=== PATIENT | female | born 1980 | race Hispanic/Latino ===

== ENCOUNTER 2024-07-07 21:37 | Inpatient (IN) | payer SELFPAY ==
[~2024-07-07] VITALS: Ht 162.6 cm; Wt 61.2 kg
[2024-07-07 21:44] VITALS: PULSE 107; RESP 16; TEMP 98.5
[2024-07-07] MEDS: SODIUM CHLORIDE 0.9% 1000ML 1,000 ML IV ONE ×2 (22:36→23:13)
[2024-07-07] MEDS: Morphine 2mg Syringe 2 MG/ML SYR IV ONE (23:12)
[2024-07-07] MEDS: ONDANSETRON HCL INJ 2MG/ML 2ML 2 MG/ML VIAL IV STA (23:12)
[2024-07-08] VITALS (8 sets, daily range): BP systolic 77–124; BP diastolic 56–68; PULSE 75–108; RESP 16–19; TEMP 98.1–99.1; O2SAT 97–100
[2024-07-08] MEDS ORDERED: Morphine 2mg Syringe 2 MG/ML SYR IV PRN (00:45)
[2024-07-08] MEDS ORDERED: DEXTROSE 50% SYRINGE 50 ML IV PRN ×3 (00:45→08:45)
[2024-07-08] MEDS ORDERED: ONDANSETRON HCL INJ 2MG/ML 2ML 2 MG/ML VIAL IV PRN ×2 (00:45→08:45)
[2024-07-08] MEDS: INSULIN REGULAR, HUMAN 100 UNIT/1 ML SQ ONE (04:55)
[2024-07-08] MEDS: SODIUM CHLORIDE 0.9% 1000ML 1,000 ML IV SCH (04:57)
[2024-07-08] MEDS ORDERED: IOPAMIDOL 370 MG/ML 100 ML INFUS..BTL INJ ONE (06:05)
[2024-07-08] MEDS: INSULIN REGULAR, HUMAN 100 UNIT/1 ML SQ SCH (07:43)
[2024-07-08] MEDS ORDERED: HYDRALAZINE HCL 20 MG/ML VIAL IV PRN (08:45)
[2024-07-08] MEDS ORDERED: LIDOCAINE 4% PATCH TP PRN (08:45)
[2024-07-08] MEDS ORDERED: DIPHENHYDRAMINE HCL 25 MG CAP PO PRN (08:45)
[2024-07-08] MEDS ORDERED: SIMETHICONE 80 MG CHEW PO PRN (08:45)
[2024-07-08] MEDS ORDERED: DOCUSATE SODIUM 100 MG CAP PO PRN (08:45)
[2024-07-08] MEDS ORDERED: POTASSIUM CHLORIDE 20 MEQ TAB CR PO PRN (08:45)
[2024-07-08] MEDS ORDERED: ALBUTEROL/IPRATROPIUM 3 ML NEB NEB PRN (08:45)
[2024-07-08] MEDS ORDERED: BENZONATATE 100 MG CAP PO PRN (08:45)
[2024-07-08 09:38] LABS: BASOPHILS # (AUTO) 0.1 (0.0-0.1); BASOPHILS % 0.3 % (0.0-1.0); HEMATOCRIT 31.3 % (34.2-44.1); HEMOGLOBIN 10.5 g/dL (12.0-16.0); LYMPHOCYTES # (AUTO) 2.4 (1.0-3.2); MEAN CORPUSCULAR HEMOGLOBIN 30.1 pg (28-32); MEAN CORPUSCULAR HGB CONC 33.5 g/dL (31-35); MEAN CORPUSCULAR VOLUME 89.7 fL (81-99); MONOCYTES # (AUTO) 0.8 (0.2-0.8); MONOCYTES % 5.5 % (4.4-11.3); NEUTROPHILS # (AUTO) 11.5 (2.1-6.9); NEUTROPHILS % 77.7 % (38.7-80.0); PLATELET COUNT 242 x10e3/uL (140-360); RED BLOOD COUNT 3.49 x10e6/uL (3.6-5.1); RED CELL DISTRIBUTION WIDTH 12.8 % (11.7-14.4); WHITE BLOOD COUNT 14.79 x10e3/uL (4.8-10.8)
[2024-07-08 10:21] LABS: ANION GAP 13.3 mmol/L (8-16); CHOL/HDL RATIO 2.9 (3.0-3.6); CREATININE, SERUM 0.96 mg/dL (0.57-1.11)
[2024-07-08 10:45] LABS: POTASSIUM 3.3 mmol/L (3.5-5.1)
[2024-07-08] MEDS: ACETAMINOPHEN 325 MG TAB PO PRN (14:46)
[2024-07-08] MEDS ORDERED: NOVOLOG MI100 UNIT/1 SC (16:31)
[2024-07-08] MEDS ORDERED: gabapentin PO (16:31)
[2024-07-08] MEDS: ENOXAPARIN SOD INJ 40 MG/0.4 ML SYR SC SCH (17:11)
[2024-07-08] MEDS: KETOROLAC TROMETHAMINE 30 MG/ML VIAL IV SCH (17:11)
[2024-07-08] MEDS: NPH, HUMAN INSULIN ISOPHANE 100 UNIT/1 ML 3ML VIAL SQ SCH (21:27)
[2024-07-09 03:21] VITALS: BP 83/60; PULSE 75; RESP 18; TEMP 97.8; O2SAT 96
[2024-07-09 08:00] VITALS: BP 94/56; PULSE 83; RESP 17; TEMP 98.4; O2SAT 100
[2024-07-09 08:05] VITALS: BP 94/56; PULSE 83; RESP 17; TEMP 98.4; O2SAT 100
[2024-07-09 08:58] LABS: BASOPHILS % 0.4 % (0.0-1.0); EOSINOPHILS # (AUTO) 0.1 (0.0-0.4); EOSINOPHILS % 1.1 % (0.0-6.0); HEMATOCRIT 29.4 % (34.2-44.1); HEMOGLOBIN 9.8 g/dL (12.0-16.0); LYMPHOCYTES # (AUTO) 2.4 (1.0-3.2); LYMPHOCYTES % 21.8 % (18.0-39.1); MEAN CORPUSCULAR HEMOGLOBIN 29.8 pg (28-32); MEAN CORPUSCULAR HGB CONC 33.3 g/dL (31-35); MEAN CORPUSCULAR VOLUME 89.4 fL (81-99); MONOCYTES # (AUTO) 0.6 (0.2-0.8); MONOCYTES % 5.5 % (4.4-11.3); NEUTROPHILS # (AUTO) 7.8 (2.1-6.9); NEUTROPHILS % 70.8 % (38.7-80.0); PLATELET COUNT 232 x10e3/uL (140-360); RED BLOOD COUNT 3.29 x10e6/uL (3.6-5.1); RED CELL DISTRIBUTION WIDTH 12.8 % (11.7-14.4); WHITE BLOOD COUNT 10.97 x10e3/uL (4.8-10.8)
[2024-07-09] MEDS: PANTOPRAZOLE SOD 40 MG TABEC PO SCH (09:05)
[2024-07-09 09:27] LABS: ANION GAP 10.8 mmol/L (8-16); CALCIUM 7.6 mg/dL (8.4-10.2); CREATININE, SERUM 0.97 mg/dL (0.57-1.11); POTASSIUM 3.8 mmol/L (3.5-5.1)
[2024-07-09 12:00] VITALS: BP 106/66; PULSE 94; RESP 18; TEMP 98.3; O2SAT 100
[2024-07-09 16:00] VITALS: BP 107/75; PULSE 87; RESP 18; TEMP 98.1; O2SAT 100
[2024-07-09] MEDS ORDERED: GABAPENTIN100 MG PO (16:14)
[2024-07-09 21:00] VITALS: BP 113/83; PULSE 92; RESP 18; TEMP 98.7; O2SAT 100
[2024-07-09] MEDS: GABAPENTIN 100 MG CAP PO SCH (21:40)
[2024-07-09] MEDS: NPH, HUMAN INSULIN ISOPHANE 100 UNIT/1 ML 3ML VIAL SQ SCH (21:49)
[2024-07-10 03:41] VITALS: BP 113/83; PULSE 92; RESP 18; TEMP 98.7; O2SAT 100
[2024-07-10 04:35] VITALS: BP 98/71; PULSE 80; RESP 16; TEMP 98.4; O2SAT 100
[2024-07-10 05:41] LABS: BASOPHILS % 0.2 % (0.0-1.0); EOSINOPHILS # (AUTO) 0.1 (0.0-0.4); EOSINOPHILS % 1.3 % (0.0-6.0); HEMATOCRIT 28.1 % (34.2-44.1); HEMOGLOBIN 9.4 g/dL (12.0-16.0); LYMPHOCYTES # (AUTO) 3.1 (1.0-3.2); LYMPHOCYTES % 36.9 % (18.0-39.1); MEAN CORPUSCULAR HEMOGLOBIN 29.8 pg (28-32); MEAN CORPUSCULAR HGB CONC 33.5 g/dL (31-35); MEAN CORPUSCULAR VOLUME 89.2 fL (81-99); MONOCYTES # (AUTO) 0.6 (0.2-0.8); MONOCYTES % 6.9 % (4.4-11.3); NEUTROPHILS # (AUTO) 4.5 (2.1-6.9); NEUTROPHILS % 54.3 % (38.7-80.0); PLATELET COUNT 243 x10e3/uL (140-360); RED BLOOD COUNT 3.15 x10e6/uL (3.6-5.1); RED CELL DISTRIBUTION WIDTH 12.9 % (11.7-14.4); WHITE BLOOD COUNT 8.27 x10e3/uL (4.8-10.8)
[2024-07-10 06:06] LABS: ANION GAP 11.6 mmol/L (8-16); CALCIUM 7.6 mg/dL (8.4-10.2); POTASSIUM 3.6 mmol/L (3.5-5.1)
[2024-07-10 08:00] VITALS: BP 117/77; PULSE 88; RESP 20; TEMP 98.5; O2SAT 99
[2024-07-10 09:25] VITALS: BP 117/77; PULSE 88; RESP 20; TEMP 98.5; O2SAT 99
[2024-07-10 12:00] VITALS: BP 128/85; PULSE 89; RESP 15; TEMP 97.5; O2SAT 100
[2024-07-10] MEDS ORDERED: CIPRO500 MG PO (17:16)
[2024-07-10] MEDS ORDERED: [UNRECOGNIZED DRUG - OTHER] SQ (17:18)
[2024-07-10] MEDS ORDERED: HUMULIN R100 UNIT/2 INJ (17:19)
== END 2024-07-10 18:00 | disposition home or self-care (01) | DRG 638 ==
LOC: FSED 21:54 → ERHOLD 07-08 00:39 → MED/SURG 07-08 04:04
PROVIDERS: ADMIT Internal Medicine; ATTEND Internal Medicine
DX: E11.65 Type 2 diabetes mellitus with hyperglycemia (principal); N10 Acute pyelonephritis; N17.9 Acute kidney failure, unspecified; N30.90 Cystitis, unspecified without hematuria; E86.0 Dehydration; I10 Essential (primary) hypertension; K52.9 Noninfective gastroenteritis and colitis, unspecified; R11.2 Nausea with vomiting, unspecified; R63.2 Polyphagia; N83.292 Other ovarian cyst, left side; Z79.4 Long term (current) use of insulin; Z90.49 Acquired absence of other specified parts of digestive tract; Z90.710 Acquired absence of both cervix and uterus; Z91.199 Patient's noncompliance with other medical treatment and regimen due to unspecified reason; Z83.3 Family history of diabetes mellitus
CPT/HCPCS: 36415; 74177; 80048; 80053; 80061; 80307; 81003; 81025; 82948; 83036; 83605; 83690; 85025; 87040; 96372; 99252; 99284; J0696; J1650; J1885; J2270; J2405; J2470; J2543; J7030; Q9967